=== PATIENT | male | born 1990 | race American Indian/Alaskan Native ===

== ENCOUNTER 2020-03-07 01:41 | Emergency (ER) | payer OTHER ==
[2020-03-07 04:14] VITALS: BP 130/68
== END 2020-03-07 04:14 | disposition home or self-care (01) ==
LOC: ED 01:41
DX: S51.812A Laceration without foreign body of left forearm, initial encounter (principal); S61.012A Laceration without foreign body of left thumb without damage to nail, initial encounter; F17.200 Nicotine dependence, unspecified, uncomplicated; Z79.1 Long term (current) use of non-steroidal anti-inflammatories (NSAID); Z79.2 Long term (current) use of antibiotics; W18.02XA Striking against glass with subsequent fall, initial encounter; Y93.89 Activity, other specified; Y92.009 Unspecified place in unspecified non-institutional (private) residence as the place of occurrence of the external cause; Y99.8 Other external cause status

== ENCOUNTER 2020-03-13 13:58 | Emergency (ER) | payer OTHER ==
--- NOTE | 2020-03-13 14:43 | XRay Report ---
CHEST 1 VIEW INDICATION: Chest Pain. COMPARISON: None FINDINGS: SUPPORT DEVICES: None. HEART: Within normal limits. LUNGS/PLEURA: Minimal streaky left basilar airspace disease with otherwise clear lungs. ADDITIONAL FINDINGS: None. IMPRESSION: 1. Minimal streaky left basilar airspace disease. Signer Name: Antony Jama MD Signed: 03/13/2020 2:39 PM Workstation Name: [id number]
[2020-03-13 19:23] VITALS: BP 124/66
--- NOTE | 2020-03-13 19:45 | Emergency Department Report ---
ED General Adult HPI - General Chief complaint: Chest Pain Stated complaint: CP Time Seen by Provider: 03/13/20 19:23 Source: patient Mode of arrival: Ambulatory Limitations: No Limitations - History of Present Illness Initial comments: Patient presents with complaints of substernal chest pain for the past 2 days. He denies any cough, shortness of breath, fever, injury to his chest wall, known heart issues, abdominal pain, or known sick contacts/COVID contact. He rates his current pain as a 5/10 in severity and states it worsens with sitting still. He denies worsening of pain with exertion, leg pain/swelling, recent long travel/hospital stays, or history of DVT/PE/cancer. He denies trying any OTC medication for his pain. Severity scale (0 -10): 0 - Related Data Previous Rx's Medication Instructions Recorded Last Taken Type Ibuprofen [Motrin] 600 mg PO Q8H PRN #20 tablet 03/07/20 Unknown Rx cephALEXin [Keflex] 500 mg PO Q8HR #30 cap 03/07/20 Unknown Rx Azithromycin [Zithromax Z-THALIA] 0 mg PO DAILY 5 Days #6 tab 03/13/20 Unknown Rx Allergies Allergy/AdvReac Type Severity Reaction Status Date / Time No Known Allergies Allergy Verified 03/13/20 14:07 ED Review of Systems ROS: Stated complaint: CP Other details as noted in HPI Constitutional: denies: chills, diaphoresis, fever, malaise, weakness ENT: denies: throat pain Respiratory: denies: cough, shortness of breath Cardiovascular: chest pain. denies: palpitations, edema, syncope Gastrointestinal: denies: abdominal pain, nausea, vomiting, diarrhea Musculoskeletal: denies: back pain Neurological: denies: headache, weakness, numbness, paresthesias Hematological/Lymphatic: denies: easy bleeding ED Past Medical Hx - Past Medical History Previous Medical History?: No - Surgical History Past Surgical History?: No - Social History Smoking Status: Never Smoker Substance Use Type: None - Medications Home Medications: Home Medications Medication Instructions Recorded Confirmed Last Taken Type Ibuprofen [Motrin] 600 mg PO Q8H PRN #20 tablet 03/07/20 Unknown Rx cephALEXin [Keflex] 500 mg PO Q8HR #30 cap 03/07/20 Unknown Rx Azithromycin [Zithromax Z-THALIA] 0 mg PO DAILY 5 Days #6 tab 03/13/20 Unknown Rx ED Physical Exam - General Limitations: No Limitations General appearance: alert, in no apparent distress - Head Head exam: Present: atraumatic, normocephalic - Eye Eye exam: Present: normal appearance. Absent: scleral icterus - ENT ENT exam: Present: mucous membranes moist - Neck Neck exam: Present: normal inspection - Respiratory Respiratory exam: Present: normal lung sounds bilaterally. Absent: respiratory distress, wheezes, rales, chest wall tenderness - Cardiovascular Cardiovascular Exam: Present: regular rate, normal rhythm. Absent: systolic murmur, diastolic murmur, rubs, gallop - GI/Abdominal GI/Abdominal exam: Present: soft, normal bowel sounds. Absent: tenderness - Extremities Exam Extremities exam: Present: normal inspection, other (No swelling or tenderness noted of the lower legs bilaterally) - Back Exam Back exam: Present: normal inspection - Neurological Exam Neurological exam: Present: alert, oriented X3 - Psychiatric Psychiatric exam: Present: normal affect, normal mood - Skin Skin exam: Present: warm, dry, intact, normal color. Absent: rash, cyanosis, erythema, petechiae, ecchymosis ED Course Vital Signs 03/13/20 03/13/20 03/13/20 14:11 19:22 19:32 Temperature 98.5 F 97.4 F L Pulse Rate 74 66 Respiratory 18 16 16 Rate Blood Pressure 122/73 124/66 [Left] O2 Sat by Pulse 100 96 Oximetry ED Medical Decision Making - Radiology Data Radiology results: report reviewed CHEST 1 VIEW INDICATION: Chest Pain. COMPARISON: None FINDINGS: SUPPORT DEVICES: None. HEART: Within normal limits. LUNGS/PLEURA: Minimal streaky left basilar airspace disease with otherwise clear lungs. ADDITIONAL FINDINGS: None. IMPRESSION: 1. Minimal streaky left basilar airspace disease. - Medical Decision Making Patient here with complaints of substernal chest pain for the past 2 days. Vitals are normal. Chest x-ray shows: Minimal streaky left basilar airspace disease with otherwise clear lungs. Perc score = 0. Discussed patient in detail with Dr. Knowles who recommends lab work given abnormalities noted on chest x-ray. Patient declines labs and has decided to sign out AMA. Patient given Z-Thalia and strict return precautions were discussed in great detail with patient who verbalizes understanding. Patient advised also to follow with his primary care provider within the next 3 days. Critical care attestation.: If time is entered above; I have spent that time in minutes in the direct care of this critically ill patient, excluding procedure time. ED Disposition Clinical Impression: Abnormal CXR, Atypical chest pain Disposition: TO HOME OR SELFCARE Is pt being admited?: No Condition: Stable Instructions: COVID-19, Chest Pain (ED), Community-acquired Pneumonia (ED) Prescriptions: Azithromycin [Zithromax Z-THALIA] 0 mg PO DAILY 5 Days #6 tab Referrals: PRIMARY CARE,MD [Primary Care Provider] - 3-5 Days Forms: Work/School Release Form(ED)
== END 2020-03-13 20:07 | disposition home or self-care (01) ==
LOC: ED 13:58
DX: R91.8 Other nonspecific abnormal finding of lung field (principal); R07.89 Other chest pain; Z79.899 Other long term (current) drug therapy
CPT/HCPCS: 71045; 93005; 99283

== ENCOUNTER 2020-03-20 20:50 | Emergency (ER) | payer OTHER ==
--- NOTE | 2020-03-20 20:54 | Emergency Department Report ---
Suture/Staple Removal - HPI Chief Complaint: Laceration/Recheck/Suture Stated Complaint: STICHES REMOVED Time Seen by Provider: 03/20/20 20:54 When Sutures or Devyn Placed: 03/07/2020 Wound Location: left forearm and left thumb ED Review of Systems ROS: Stated complaint: STICHES REMOVED Other details as noted in HPI Comment: All other systems reviewed and negative ED Past Medical Hx - Past Medical History Previous Medical History?: No - Surgical History Past Surgical History?: No - Social History Smoking Status: Never Smoker Substance Use Type: None - Medications Home Medications: Home Medications Medication Instructions Recorded Confirmed Last Taken Type Ibuprofen [Motrin] 600 mg PO Q8H PRN #20 tablet 03/07/20 Unknown Rx cephALEXin [Keflex] 500 mg PO Q8HR #30 cap 03/07/20 Unknown Rx Azithromycin [Zithromax Z-THALIA] 0 mg PO DAILY 5 Days #6 tab 03/13/20 Unknown Rx Suture Removal Exam - Exam General: Vital signs noted. No distress. Alert and acting appropriately. Wound: No Pathologic Erythema, No Tenderness, No Drainage, No Pus, No Wound Dehiscence Other Systems: All other systems reviewed and are unremarkable. ED Recheck MDM - Medical Decision Making Patient is a 29-year-old male who presents emergency room for suture removal from the left thumb and left forearm that he had placed on 03/07/2020. He denies any drainage, pain, fever, chills, vomiting, any symptoms. All sutures removed without difficulty and there is no signs of infection, no wound dehiscence. Patient tolerated well, no complications. advised pt please continue to keep area clean, dry, covered. may wash with antibacterial soap and water twice a day and immediately dry. no hot tub, no pool, no soaking in water. follow up with a primary care doctor. return to the emergency room for any new or worsening symptoms or any signs of infection Critical care attestation.: If time is entered above; I have spent that time in minutes in the direct care of this critically ill patient, excluding procedure time. ED Disposition Clinical Impression: Encounter for removal of sutures Disposition: DC-01 TO HOME OR SELFCARE Is pt being admited?: No Does the pt Need Aspirin: No Condition: Stable Instructions: Suture Removal (ED), Acute Wound Care (ED) Additional Instructions: please continue to keep area clean, dry, covered. may wash with antibacterial soap and water twice a day and immediately dry. no hot tub, no pool, no soaking in water. follow up with a primary care doctor. return to the emergency room for any new or worsening symptoms or any signs of infection Referrals: NIRALI BLACKWOOD MD [Staff Physician] - 3-5 Days [facility] [Provider Group] - 3-[address] [facility] [Outside] - 3-5 Days Time of Disposition: 21:08 Print Language: DANISH
[2020-03-20 20:55] VITALS: BP 122/66
== END 2020-03-20 21:15 | disposition home or self-care (01) ==
LOC: ED 20:50
DX: S51.812D Laceration without foreign body of left forearm, subsequent encounter (principal); Z48.02 Encounter for removal of sutures; Z79.1 Long term (current) use of non-steroidal anti-inflammatories (NSAID); Z79.2 Long term (current) use of antibiotics; Z79.899 Other long term (current) drug therapy; X58.XXXD Exposure to other specified factors, subsequent encounter
CPT/HCPCS: 99282